=== PATIENT | female | born 1955 | race Caucasian/White ===

== ENCOUNTER 2019-02-25 05:49 | Inpatient (IN) ==
--- NOTE | 2019-02-02 09:03 | Anesthesiology Consultation ---
Date of Service February 02, 2019 Assessment & Plan (1) Encounter for pre-operative examination: Chart Review Chart Review: Acceptable Risk for Surgery and Patient seen in Pre Admission Testing Teaching & Discussion Instructed NPO after midnight before surgery, except medications with 15 cc of water. Medication instructions provided according to the PAT guidelines. History Surgery Operation Date: 02/25/19 08:50 Proposed Procedures p Right Total Knee Arthroplasty - Ruperto Jackson MD Height/Weight Height: 5 ft Weight: 88 kg Allergies Allergy/AdvReac Type Severity Reaction Status Date / Time aspirin Allergy Gastrointestinal Verified 01/29/19 07:57 Upset coffee (Coffea arabica) Allergy LARYNGITIS Verified 01/29/19 07:57 indomethacin [From Indocin] Allergy HALLUCINATI Verified 01/29/19 07:57 ON tretinoin [From Retin-A] Allergy Rash Verified 01/29/19 07:57 Medications Home Medications Medication Instructions Recorded Confirmed Last Taken acetaminophen [Tylenol Arthritis 650 mg PO Q12H PRN 01/29/19 01/29/19 Unknown Pain] Past Medical History Medical History Obesity Osteoarthritis Past Surgical History Surgical History History of bilateral tubal ligation History of bladder suspension procedure History of hysterectomy PARTIAL History of repair of rotator cuff History of total knee replacement LT - 11/2018 [facility] SAB + PNB, no issues. Nausea and vomiting after administration of anesthetic agent Past Anesthesia History No Hx of Anesthesia Complications (other than PONV (none with L TKA)) and No Family Hx of Anesthesia Complications History of PONV Yes Motion Sickness Screening History of Motion Sickness: No Social History Smoking Status: Never smoker Do You Dip or Chew Tobacco: No Hx Alcohol Use: No Hx Substance Use: No substance use type: does not use Exercise / Class Metabolic Activity II 4-5 Yardwork/Stairs/Walk up hill (but moving slowly 2/2 knee pain) Review of Systems Pt denies any recent chest pain, shortness of breath, palpitations, cough, fever or URI. Physical Exam Vital Signs BP: 146/87 (pt states not normally this high, she has been rushing around this AM) P: 89bpm SPO2: 97% RA T: 98.3 F R: 16 ENMT Mouth: no dental restorations, no chipped teeth and no loose teeth Thyromental Distance: < 3.5 Finger Breadths (3) Mallampati Class: II Neck normal visual inspection; neck extension not limited Respiratory normal respiratory effort Auscultation: lungs clear to auscultation bilaterally Cardiovascular Rate/Rhythm: regular rate and regular rhythm Heart Sounds: no murmur Vessels: no carotid bruit Testing Electrocardiogram Date: 10/23/18 Findings: + NSR @ (75) Chest X-Ray Date: 11/14/18 Findings: + NAD Laboratory Results 02/02/19 09:15 02/02/19 09:15 Blood Type B Positive 02/02/19 09:15 Antibody Screen NEGATIVE 02/02/19 09:15 PT 10.4 Seconds (9.0-12.0) 02/02/19 09:15 INR 1.0 (0.9-1.1) 02/02/19 09:15 APTT 24.0 Seconds (21.0-31.0) 02/02/19 09:15 Urine Color Yellow 02/02/19 09:15 Urine Appearance Clear (Clear) 02/02/19 09:15 Urine pH 6.0 (4.5-7.5) 02/02/19 09:15 Ur Specific [place] 1.012 (1.000-1.030) 02/02/19 09:15 Urine Protein Negative (Negative) 02/02/19 09:15 Urine Glucose (UA) Negative (Negative) 02/02/19 09:15 Urine Ketones Negative (Negative) 02/02/19 09:15 Urine Nitrite Negative (Negative) 02/02/19 09:15 Ur Leukocyte Esterase Negative (Negative) 02/02/19 09:15
[2019-02-02 09:56] LABS: Appearance Urine Clear (Clear); Bilirubin Urine Negative (Negative); Blood Urine Negative (Negative); Color Urine Yellow; Glucose Urine UA Negative (Negative); Ketones Urine Negative (Negative); Leukocyte Esterase Urine Negative (Negative); Nitrite Urine Negative (Negative); Protein Urine Negative (Negative); Specific Gravity Urine 1.012 (1.000-1.030); Urobilinogen Urine Negative (Negative)
[2019-02-02 10:01] LABS: Basophils # (auto) 0.01 K/uL (0-0.2); Basophils % (auto) 0.1 %; Eosinophils % (auto) 1.3 %; Hematocrit (blood only) 44.3 % (37-47); Hemoglobin 14.5 g/dL (12.0-16.0); Immature Granulocytes # (auto) 0.08 K/uL (0.00-0.02); Immature Granulocytes % (auto) 1.1 %; Lymphocytes # (auto) 2.51 K/uL (1.2-3.4); Lymphocytes % (auto) 33.3 %; Mean Corpuscular Hgb Conc 32.7 g/dL (32-36); Mean Corpuscular Volume 84.9 fL (80-100); Mean Platelet Volume 9.7 fL (7.4-10.4); Monocytes # (auto) 0.66 K/uL (0.11-0.59); Monocytes % (auto) 8.8 %; Neutrophils # (auto) 4.18 K/uL (1.4-6.5); Neutrophils % (auto) 55.4 %; Platelet Count 244 K/uL (130-400); RDW Coefficient of Variation 14.4 % (11.5-14.5); RDW Standard Deviation 44.4 fL (36.4-46.3); Red Blood Count 5.22 M/uL (4.2-5.4); White Blood Count 7.54 K/uL (4.8-10.8)
[2019-02-02 10:06] LABS: Calcium 9.9 mg/dl (8.5-10.1); Creatinine Clr Calc Pharmacy 78.8 ml/min; Est GFR (African American) 101.3; Est GFR (Non-African American) 87.4; Partial Thromboplastin Ratio 0.9; Potassium 4.6 mmol/L (3.5-5.1); Prothrombin Time 10.4 Seconds (9.0-12.0)
--- NOTE | 2019-02-04 16:52 | History and Physical Report ---
DATE OF ADMISSION: 02/25/2019 DATE OF SURGERY: 02/25/2019. CHIEF COMPLAINT: Right knee DJD. HISTORY OF PRESENT ILLNESS: This 63-year-old white female presents to the office with complaints of right knee pain that has been ongoing for greater than 10 years. She previously had a left total knee arthroplasty on 12/03/2018. She has done well with that and elects to proceed with the same on the right. She has tried cortisone injections, physical therapy, activity modification, oral anti-inflammatories, and oral pain medication without improvement. Pain is worse with weightbearing. Occasional night pain. Pain is affecting her ADLs. No numbness or tingling. Occasional effusions. Preoperative imaging has been obtained. PAST MEDICAL HISTORY: Significant for osteoarthritis and obesity. PREVIOUS SURGERIES: Tubal ligation 1990, hysterectomy with bladder tacking 2008, left shoulder rotator cuff repair 2013, left total knee arthroplasty 12/03/2018. ALLERGIES: KNOWN ALLERGY TO COFFEE, ASPIRIN WHICH CAUSES NAUSEA AND VOMITING, INDOCIN, AND RETIN-A. THIS CAUSES RASH. ALSO SENSITIVE TO ROBITUSSIN. CURRENT MEDICATIONS: Tylenol 500 mg every 6 hours. She has stopped all other homeopathic medications. FAMILY HISTORY: Noncontributory. SOCIAL HISTORY: The patient is . No tobacco use, no ETOH use. REVIEW OF SYSTEMS: A total of 10 systems were reviewed and are significant only for above-stated conditions. PHYSICAL EXAMINATION: GENERAL: Well-developed, well-nourished middle aged white female in no acute distress. Sitting on a chair. Alert and oriented. SKIN: Warm and dry with good turgor. No rashes or lesions. No ecchymosis or erythema. HEENT: Normocephalic, atraumatic. Eyes PERRLA, EOMI. Nares patent bilaterally without turbinate enlargement. Oropharynx without erythema or exudate. No lesions noted. Uvula midline. Oral mucosa moist. Fair dentition. Fillings are noted. HEART: RRR. No MGR. LUNGS: Clear to auscultation bilaterally. No crackles, rhonchi or wheezing. Good air movement. ABDOMEN: Bowel sounds present x4, soft, nontender. No organomegaly. No masses. Mildly obese. MUSCULOSKELETAL: Right knee evaluation reveals no intraarticular effusion today. She lacks 3-4 degrees of terminal extension. Flexion to greater than 100 degrees. Strength is 5/5 with fair quad tone. Stable collateral ligaments. No defect in the patellar tendon or quadriceps tendon. No palpable crepitus with motion. There is focal discomfort with palpation over the medial and lateral joint lines with medial being worst. Ambulatory with an antalgic gait due to her right knee. NEUROLOGIC: Gross sensation is intact across the upper and lower extremities by soft touch. Peripheral pulses are 2+. Cranial nerves II-XII are intact. DATA: Radiographic imaging previously obtained shows end-stage DJD of the right knee. Periarticular osteophytes, subchondral sclerosis, and joint space narrowing are all present. IMPRESSION: Right knee end-stage degenerative joint disease. PLAN: Approximately 20 minutes was spent with the patient discussing operative procedure, postoperative recovery, physical therapy requirements and medication use. Postoperative prescriptions for Percocet and Coumadin will be provided at discharge from the hospital. Anticipate discharge to home with outpatient services. She will have her children drive her to her lab appointments. Preoperative lab work, EKG, and chest x-ray have been ordered. She will obtain medical clearance from her PCP. She already has a walker.
[2019-02-25] MEDS ORDERED: TRANEXAMIC ACID 1,000 MG in 0.9 % SODIUM CHLORIDE 100 ML IV ONE (06:00)
[2019-02-25] MEDS ORDERED: ROPIVACAINE 0.5% HCL/PF 150 MG, BUPIVACAINE 0.5% MPF 30 ML, EPINEPHrine 0.15 MG, Ketoro... INFIL SCH (06:00)
[2019-02-25] MEDS ORDERED: CEFAZOLIN 2000MG 2,000 MG/15 ML SYR IV SCH (06:00)
[2019-02-25] MEDS ORDERED: LR 60ML/HR IV SCH (06:00)
[2019-02-25] MEDS ORDERED: LR 500ML BOLUS, THEN 15ML/HR IV SCH (06:00)
--- NOTE | 2019-02-25 06:33 | History & Physical Bridge Note ---
Date of Service February 25, 2019 History & Physical Bridge Note I have examined the patient, reviewed the History & Physical and in the interval since the performance of the History & Physical I have noted the following changes of clinical significance: consent obtained.no changes noted
[2019-02-25] MEDS ORDERED: EPINEPHrine INJ 1 MG/ML AMP ONE (06:38)
[2019-02-25] MEDS ORDERED: BUPIVACAINE 0.5 % 5 MG/1 ML PF 10ML VIAL ONE (06:38)
[2019-02-25] MEDS ORDERED: ROPIVACAINE 0.5% 5 MG/ML 30 ML VIAL ONE (06:38)
[2019-02-25] MEDS ORDERED: fentaNYL citrate 100 MCG/2 ML VIAL ONE (08:01)
[2019-02-25] MEDS ORDERED: MIDAZOLAM HCL 1 MG/ML 2ML VIAL ONE ×2 (08:01→08:10)
[2019-02-25] MEDS ORDERED: ONDANSETRON INJ 2 MG/ML 2 ML VIAL IV PRN ×2 (08:04→11:39)
[2019-02-25] MEDS ORDERED: LABETALOL HCL IV 5 MG/ML 20ML IV PRN (08:04)
[2019-02-25] MEDS ORDERED: MEPERIDINE HCL 25 MG/ML CARP IV PRN (08:04)
[2019-02-25] MEDS ORDERED: ePHEDrine sulfate 50 MG/ML AMP IV PRN (08:04)
[2019-02-25] MEDS ORDERED: PHENYLEPHRINE 100MCG/ML 5ML SYR IV PRN (08:04)
[2019-02-25] MEDS ORDERED: HYDROmorphone INJ 1 MG/ML SYRINGE IV PRN (08:04)
[2019-02-25] MEDS ORDERED: fentaNYL citrate 100 MCG/2 ML VIAL IV PRN (08:04)
[2019-02-25] MEDS ORDERED: ATROPINE SULFATE 0.1 MG/ML 10ML SYR IV PRN (08:04)
[2019-02-25] MEDS ORDERED: ORTHO JOINT ANESTHETIC ONE (08:34)
[2019-02-25] MEDS ORDERED: POVIDONE-IODINE OP SOLN 30 ML BTL ONE (08:34)
[2019-02-25] MEDS ORDERED: PROPOFOL IV EMULSION 10 MG/ML 20 ML VIAL IV ONE ×3 (08:55→09:24)
[2019-02-25] MEDS ORDERED: ONDANSETRON INJ 2 MG/ML 2 ML VIAL ONE (08:55)
--- NOTE | 2019-02-25 10:12 | Post Operative Brief Note ---
Immediate Post Op Note v1 Date of Surgery February 25, 2019 Pre & Post Diagnosis Operation Date: 02/25/19 08:50 Pre-Op Diagnosis: Right Knee End-Stage Degenerative Joint Disease Post-Op Diagnosis: Right Knee End-Stage Degenerative Joint Disease Procedure Operation Date: 02/25/19 08:50 Actual Procedures p Right Total Knee Arthroplasty, Cemented(Right) - Ruperto Jackson MD Surgeon Ruperto Jackson MD Stain Maker [facility] Estimated Blood Loss 25 Findings Consistent with Post-Op Diagnosis
--- NOTE | 2019-02-25 10:21 | Operative Report ---
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 She had tried conservative care measures without improvement. She previously had a left total knee arthroplasty done earlier this year. She has done very well with that. She elected to proceed with the same on the right. Risks and benefits were discussed. Preoperative imaging was obtained. Description of Procedure Patient was administered spinal anesthetic and then taken to the operating room where she was given sedation. She was prepped and draped in the usual sterile fashion. Please see Dr. Jackson's operative report for specifics of the procedure. I was present for the entire case from initial patient positioning through final wound closure. Assistance was provided in tissue retraction, hemostasis, trial implant placement, final implant placement, and final wound closure. Patient was taken to the recovery room in satisfactory condition. I attest to the content of the Intraoperative Record and any orders documented therein. Any exceptions are noted below.
--- NOTE | 2019-02-25 10:47 | XRay Report ---
TWO VIEWS RIGHT KNEE CLINICAL HISTORY: Postoperative examination. FINDINGS: AP and crosstable lateral portable views of the right knee are obtained. A right knee arthr oplasty is in near anatomic alignment. There has been undersurface remodeling of the patella. No acut e fracture is seen. There are expected postoperative changes around the knee including skin clips, so ft tissue edema, and subcutaneous gas. IMPRESSION: Expected postoperative changes status post right knee arthroplasty. No acute fracture is seen. Electronically signed by: Nelson Atkins M.D. 02/25/2019 10:45 AM
--- NOTE | 2019-02-25 11:12 | Progress Note ---
DATE: 02/25/2019 Postop check status post right total knee replacement. The patient is lying comfortably in bed, has no issues. She denies any chest pain, shortness of breath, fever, chills, nausea, vomiting or headache. Vital signs are stable. She is afebrile. Neurovascular check is limited by her spinal wearing off. Wound dressing clean, dry and intact. Postop x-rays look excellent. ASSESSMENT: Doing well. Continue with care pathway. Mobilize when spinal has worn off.
--- NOTE | 2019-02-25 11:19 | Anesthesiology Progress Note ---
Date of Service February 25, 2019 Anesthesia Post Procedure Vital Signs Vital Signs: Temp Pulse Pulse Resp BP Pulse Ox 02/25/19 11:15 36.5 C 88 23 118/74 99 02/25/19 11:05 86 21 125/74 99 02/25/19 10:55 82 20 125/69 100 02/25/19 10:45 84 17 119/65 100 02/25/19 10:35 82 21 114/64 100 02/25/19 10:25 85 18 111/61 98 02/25/19 10:19 37.0 C 86 16 86/53 L 98 02/25/19 06:49 36.7 C 97 H 20 143/92 H 97 Pain Intensity Right Knee: Pain Intensity: 0 Notes Mental Status: alert / awake / arousable Patient Amnestic to Procedure: Yes Nausea / Vomiting: adequately controlled Pain: adequately controlled Airway Patency, RR, SpO2: stable & adequate BP & HR: stable & adequate Hydration State: stable & adequate Neuraxial Anesthesia: was administered and sensory block is resolving Anesthetic Complications: no major complications apparent and Pt Satisfied with anesthetic care
[2019-02-25] MEDS ORDERED: MAGNESIUM HYDROXIDE SUSP 30 ML UDC PO PRN (11:39)
[2019-02-25] MEDS ORDERED: BISACODYL 10 MG SUPP PR PRN (11:39)
[2019-02-25] MEDS ORDERED: SODIUM CHLORIDE 0.9% 1000ML 1,000 ML IV SCH (11:39)
[2019-02-25] MEDS ORDERED: CYCLOBENZAPRINE HCL 10 MG TAB PO PRN (11:39)
[2019-02-25] MEDS ORDERED: METOCLOPRAMIDE HCL INJ 5 MG/ML 2 ML VIAL IV PRN (11:39)
[2019-02-25] MEDS ORDERED: NALOXONE HCL 0.4 MG/1 ML VIAL/CARP IV PRN (11:39)
[2019-02-25] MEDS ORDERED: ALUMINUM/MAGNESIUM SUSP 30 ML UDC PO PRN (11:39)
[2019-02-25] MEDS ORDERED: OXYCODONE HCL IR 5 MG TAB (IMMEDIATE RELEASE) PO PRN (11:39)
[2019-02-25] MEDS ORDERED: DiphenhydrAMINE HCL 50 MG/ML VIAL IV PRN (11:39)
[2019-02-25] MEDS ORDERED: HYDROmorphone INJ 0.5 MG/0.5 ML SYR IV PRN (11:39)
--- NOTE | 2019-02-25 11:41 | Operative Report ---
DATE OF OPERATION: 02/25/2019 SURGEON: Ruperto Jackson MD. HEEL TRIMMER: Nikos Winters PA-C. No resident or fellow available. PREOPERATIVE DIAGNOSES: Osteoarthritis right knee with varus deformity. POSTOPERATIVE DIAGNOSES: Osteoarthritis right knee with varus deformity. OPERATION PERFORMED: Cemented right total knee replacement. SUMMARY OF IMPLANTS: Size 2 right posterior cruciate substituting femur, size 2 mobile bearing tray, size 2 spacer 15 mm thick, posterior cruciate substituting oval domed 3 pegged patella size 38, 2 bags of Palacos G cement. Bone pathology pending. ESTIMATED BLOOD LOSS: 25 mL. DVT prophylaxis with Coumadin. PERIOPERATIVE SITUATION: Medically cleared female with intractable knee pain, has varus flexion deformity with x-rays revealing a varus alignment, marked subluxation and joint space narrowing, particularly medially with tricompartmental changes. DESCRIPTION OF PROCEDURE: The patient appropriately identified, site verified, consent verified. Antibiotics confirmed as being given. The right lower extremity was prepped and draped in usual routine fashion. Tourniquet inflated to 300 mmHg after exsanguination of limb with a rubber Esmarch bandage for a total of approximately 46 minutes. Midline exposure utilized. Parapatellar arthrotomy performed. Synovectomy completed. Marked osteophytes resected. Soft tissue releases medially performed. The distal femur was then resected 14 mm, proximal tibia 4 mm, the extension gap was excellent. Femur was sized between 2.5 and 2, was measured 2.5 cut 2. There was no notching. The flexion gap was then checked. It was good, slightly tight laterally, slight released, then it was excellent. The Orthomix was then injected posteriorly. Care taken not to get into the neurovascular pedicle. The box cut was then made and size 2 trial fit well. The size 2 tibia was then broached and reamed and a trial reduction carried out and with 15 mm spacer, the knee was very stable in full range. The patella was resected leaving about 16 mm. It was sized to a 38. The seating holes made and the trial tracked well. Orthomix was then injected all around the knee. The trials were removed. The wound irrigated with Betadine Pulsavac and then the permanents cemented into position starting with the tibia, followed by the femur, then the patella. After 12 minutes, the tourniquet deflated. Minor bleeding points controlled with the electrocautery. The wound was then irrigated and then at 14 minutes, the knee flexed, the trial spacer removed. No cement removal was required. The wound irrigated with Betadine. Permanent liner seated. The knee reduced. The wound was then closed in about 30-40 degrees of flexion with #2 Vicryl, 2-0 Vicryl and stainless steel clips. Appropriate dressing applied. The patient transferred to Recovery Room in satisfactory condition having tolerated the procedure well. I attest to the content of the Intraoperative Record and any orders documented therein. Any exception s are noted below.
[2019-02-25] MEDS: ACETAMINOPHEN 500 MG TAB PO SCH ×2 (13:45→21:02)
[2019-02-25] MEDS: KETOROLAC 30 MG/ML VIAL IV SCH ×2 (13:45→18:05)
[2019-02-25] MEDS: ORTHO WARFARIN NOMOGRAM SCH (14:09)
[2019-02-25] MEDS ORDERED: TRANEXAMIC ACID 1,000 MG in 0.9 % SODIUM CHLORIDE 100 ML IV SCH (16:00)
[2019-02-25] MEDS ORDERED: WARFARIN SOD 5 MG TAB PO SCH (16:00)
--- NOTE | 2019-02-25 16:32 | Progress Note ---
DATE: 02/25/2019 Eliza is doing well postop. Is able do straight leg raise and knee bends. Neurovascular check femoral sciatic nerve is normal. Wound dressing clean, dry and intact on the right knee. She ate and drank. She is doing well. She denies any chest pain, shortness of breath, fever, chills, nausea, vomiting, headache. ASSESSMENT: Doing well. Mobilize. Hep-Lock IV. Likely discharge in a.m.
--- NOTE | 2019-02-25 16:39 | Discharge Summary ---
CHIEF COMPLAINT: Right knee pain. HISTORY OF PRESENT ILLNESS: The patient underwent elective right total knee replacement. Hospital course has been uneventful to date. Vital signs are stable. She is afebrile. Eating and drinking. She has no problems. PAST MEDICAL HISTORY: Remarkable for osteoarthritis and obesity. PAST SURGICAL HISTORY: Tubal ligation, hysterectomy, shoulder surgery and left total knee replacement. ALLERGIES: COFFEE, ASPIRIN CAUSES NAUSEA, VOMITING INDOCIN, RETINAL WHICH CAUSE A RASH AND SENSITIVITY TO ROBITUSSIN. PREADMISSION MEDICATIONS: Include raymon, Naprosyn, cinnamon, tumeric, and Krill oil. She will discontinue her Naprosyn and add p.r.n. Percocet and Coumadin to keep INR 1.8-2.2. We will also add Flexeril 10 mg p.o. q. 8 hours p.r.n. FAMILY HISTORY: Noncontributory. SOCIAL HISTORY: Reveals she is . No tobacco or alcohol use. REVIEW OF SYSTEMS: Reveals no issues. ASSESSMENT: Overall, doing well status post right total knee replacement. Plan is for discharge tomorrow. Coumadin dose per nomogram. If INR is 1.5 or less, discharge on 4 mg Coumadin 1.6-2.0 2 mg Coumadin and greater than 2.0, hold.
[2019-02-25] MEDS: FERROUS GLUCONATE 324 MG TAB PO SCH (17:02)
[2019-02-25] MEDS: CEFAZOLIN 2000MG 2,000 MG/15 ML SYR IV SCH (17:02)
[2019-02-25] MEDS ORDERED: SENNA 8.6 MG TAB PO SCH (21:00)
[2019-02-25] MEDS: DOCUSATE SODIUM 100 MG CAP PO SCH (21:02)
[2019-02-26] MEDS: KETOROLAC 30 MG/ML VIAL IV SCH ×2 (00:22→05:02)
[2019-02-26] MEDS: CEFAZOLIN 2000MG 2,000 MG/15 ML SYR IV SCH (00:22)
[2019-02-26] MEDS: ACETAMINOPHEN 500 MG TAB PO SCH (05:02)
[2019-02-26 06:43] LABS: Hematocrit (blood only) 38.4 % (37-47); Hemoglobin 12.4 g/dL (12.0-16.0); Mean Corpuscular Hgb Conc 32.3 g/dL (32-36); Mean Corpuscular Volume 83.7 fL (80-100); Mean Platelet Volume 9.4 fL (7.4-10.4); Platelet Count 186 K/uL (130-400); RDW Coefficient of Variation 14.5 % (11.5-14.5); RDW Standard Deviation 44.5 fL (36.4-46.3); Red Blood Count 4.59 M/uL (4.2-5.4); White Blood Count 9.42 K/uL (4.8-10.8)
[2019-02-26 06:56] LABS: INR 1.1 (0.9-1.1); Prothrombin Time 11.4 Seconds (9.0-12.0)
--- NOTE | 2019-02-26 07:09 | Progress Note ---
DATE: 02/26/2019 SUBJECTIVE: Postop day #1 status post right total knee replacement. The patient is sitting up in bed, comfortable, has no major issues. Pain is well managed. She denies chest pain, shortness breath, fever, chills, nausea, vomiting, or headache. OBJECTIVE: Vital signs are stable. She is afebrile. Neurovascular check femoral sciatic nerve is normal. Wound dressing clean, dry and intact. Laboratory work reveals hematocrit stable at 38. INR is pending. PRP is pending. ASSESSMENT: Doing well. Plan is for discharge today. Coumadin per nomogram.
[2019-02-26 07:22] LABS: BUN Creatinine Ratio 20.4 (10-20); Calcium 8.9 mg/dl (8.5-10.1); Creatinine Clr Calc Pharmacy 82.7 ml/min; Est GFR (African American) 104.8; Est GFR (Non-African American) 90.4; Potassium 4.4 mmol/L (3.5-5.1)
[2019-02-26] MEDS: FERROUS GLUCONATE 324 MG TAB PO SCH (07:57)
[2019-02-26] MEDS: DOCUSATE SODIUM 100 MG CAP PO SCH (07:58)
[2019-02-26] MEDS ORDERED: dexAMETHasone 10 MG in SYRINGE 0 ML IV SCH (08:00)
--- NOTE | 2019-02-26 08:42 | Anesthesiology Progress Note ---
Date of Service February 26, 2019 Anesthesia Post Procedure Vital Signs Vital Signs: Temp Pulse Pulse Resp BP Pulse Ox 02/26/19 07:10 36.6 C 76 16 117/76 97 02/26/19 03:59 36.7 C 74 18 107/68 96 02/25/19 22:55 36.7 C 67 17 111/72 95 02/25/19 19:53 36.5 C 88 19 138/83 95 02/25/19 16:09 36.8 C 81 18 143/84 H 96 02/25/19 14:40 36.6 C 74 19 124/83 96 02/25/19 13:30 36.6 C 84 18 118/81 96 02/25/19 12:27 36.5 C 73 17 112/72 96 02/25/19 12:07 36.5 C 71 15 113/73 98 02/25/19 11:30 36.5 C 87 18 109/71 96 02/25/19 11:25 83 21 122/72 99 02/25/19 11:15 36.5 C 88 23 118/74 99 02/25/19 11:05 86 21 125/74 99 02/25/19 10:55 82 20 125/69 100 02/25/19 10:45 84 17 119/65 100 02/25/19 10:35 82 21 114/64 100 02/25/19 10:25 85 18 111/61 98 02/25/19 10:19 37.0 C 86 16 86/53 L 98 Pain Intensity Right Knee: Pain Intensity: 2 Notes Mental Status: alert / awake / arousable and participated in evaluation Patient Amnestic to Procedure: Yes Nausea / Vomiting: adequately controlled Pain: adequately controlled Airway Patency, RR, SpO2: stable & adequate BP & HR: stable & adequate Hydration State: stable & adequate Neuraxial Anesthesia: was administered and sensory block resolved Anesthetic Complications: no major complications apparent and Pt Satisfied with anesthetic care
[2019-02-26] MEDS ORDERED: MULTIVITAMIN TAB PO SCH (09:00)
[2019-02-26] MEDS: ORTHO WARFARIN NOMOGRAM SCH (09:23)
[2019-02-26] MEDS ORDERED: WARFARIN SOD 5 MG TAB PO SCH (10:00)
--- NOTE | 2019-02-26 10:04 | Orthopedic Progress Note ---
Date of Service February 26, 2019 Assessment & Plan (1) S/P total knee arthroplasty: New pressure dressing was applied by me. Continue Coumadin per nomogram. Discharge to home today after PT/OT with outpatient services. Prescriptions were provided for Coumadin, Percocet, and Flexeril. She will take Coumadin 4 mg daily and have her blood rechecked on Saturday. Keep the dressing dry and intact until Saturday. Change it as needed at that point. Discontinue the knee immobilizer for ambulation after today. Follow-up in the office in 2 weeks for staple removal as scheduled. Subjective Patient is seen in her room this morning. She is eating breakfast. She states she did well overnight. Even with motion, her worst pain was 2/10. She denies any numbness or tingling. She feels ready for discharge. No chest pain, shortness of breath, nausea, vomiting, diarrhea, chills, or sweats. She has been doing well with Percocet and Flexeril for pain control. Physical Exam Vital Signs (Past 24 Hours): Last Vital Signs Temp 36.6 C 02/26/19 07:10 Pulse 76 02/26/19 07:10 Resp 16 02/26/19 07:10 BP 117/76 02/26/19 07:10 Pulse Ox 97 02/26/19 07:10 Physical Exam: Right leg has a dry intact dressing. Upon removal, there is scant drainage. No active drainage currently. Expected postoperative edema and ecchymosis. She is able to perform a straight leg raise. Intact flexion and in extension to the knee. Flexes easily to around 70 degrees. Intact motor function to the ankle. Neurologic: Gross sensation is intact across the right leg by soft touch. Peripheral pulses are 2+.
== END 2019-02-26 11:57 | disposition home or self-care (01) | DRG 470 ==
LOC: ASU 05:49 → 3E 10:29

== ENCOUNTER 2020-12-30 07:38 | Inpatient (IN) ==
--- NOTE | 2020-12-13 08:56 | PAT Medication Instructions ---
Medication Instructions Date of Service December 13, 2020 Home Medications acetaminophen [Tylenol Arthritis Pain] 650 mg PO Q12H PRN amino acids [Amino Acid] 1 cap PO QAM STOP taking 2 weeks before surgery (or as soon as possible if surgery is within 2 weeks) amino acids [Amino Acid] 1 cap PO QAM Take morning of surgery With a small sip of water, OTHERWISE NOTHING TO EAT OR DRINK AFTER MIDNIGHT: acetaminophen [Tylenol Arthritis Pain] 650 mg PO Q12H PRN (okay to take up to 4 hours prior to surgery if needed) Take evening before surgery acetaminophen [Tylenol Arthritis Pain] 650 mg PO Q12H PRN (if needed) Other Notes If you have any questions please call us at [phone] or [phone] or [phone] or [phone]
--- NOTE | 2020-12-15 12:07 | Anesthesiology Consultation ---
Date of Service December 15, 2020 Assessment & Plan (1) Encounter for pre-operative examination: Chart Review Chart Review: Acceptable Risk for Surgery (pending preop Covid testing ) and Patient seen in Pre Admission Testing Per PAT appt on 12/15/20, pt resides in [facility]. Travels to [facility] for medical appts. 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 Does wear appropriate PPE. No known Covid positive contacts or Covid related symptoms. Scheduled for preop Covid testing 12/23/20= will await results. Educated on importance of self quarantining, social distancing and wearing mask in public both for the patient and household contacts. Right total knee 02/25/19= Done under SAB. No anesthesia issues noted per anesthesia record. Teaching & Discussion Pre-Anesthesia Teaching/Discussion Notes: Instructed NPO after midnight before s urgery,except medications with 15 cc of water. Medication instructions provided according to the [facility] guidelines. History Surgery Operation Date: 12/30/20 07:45 Proposed Procedures p C4-C5 Anterior Cervical Discectomy and Fusion, C6 Corpectomy, Spinal Cord Monitoring - Bud Torre DO Height/Weight Height: 5 ft Weight: 88.3 kg Allergies Allergy/AdvReac Type Severity Reaction Status Date / Time aspirin Allergy Gastrointestinal Verified 11/16/20 08:41 Upset coffee (Coffea arabica) Allergy LARYNGITIS Verified 11/16/20 08:41 indomethacin [From Indocin] Allergy HALLUCINATI Verified 11/16/20 08:41 ON tretinoin [From Retin-A] Allergy Rash Verified 11/16/20 08:41 Medications Home Medications Medication Instructions Recorded Confirmed Last Taken acetaminophen [Tylenol Arthritis 650 mg PO Q12H PRN 01/29/19 11/16/20 02/04/19 Pain] amino acids [Amino Acid] 1 cap PO QAM 11/16/20 11/16/20 Unknown Past Medical History Medical History (Updated 12/16/20 @ 08:17 by Waleska Cummings PA-C) Acid reflux Mild- occ- relieved with OTC antacids Obesity Osteoarthritis Exercise / Class Metabolic Activity II 4-5 Yardwork/Stairs/Walk up hill (one flight of stairs - no chest pain or SOB) Past Surgical History Surgical History History of bilateral tubal ligation History of bladder suspension procedure History of hysterectomy PARTIAL History of repair of rotator cuff left History of total knee replacement LT - 11/2018 [facility] SAB + PNB, no issues. History of total right knee replacement (TKR) Nausea and vomiting after administration of anesthetic agent Past Anesthesia History No Hx of Anesthesia Complications (with exception to PONV ) and No Family Hx of Anesthesia Complications History of PONV No Hx of Motion Sickness and History of PONV (declines scop patch ) Social History Smoking Status: Never smoker Do You Dip or Chew Tobacco: No Hx Alcohol Use: No Hx Substance Use: No substance use type: does not use Review of Systems Patient denies chest pain, shortness of breath, dyspnea on exertion, cough, wheezing, palpitations. No hx of seizures, stroke, [place], apnea/snoring. No hx of blood clots or blood transfusions Physical Exam Vital Signs VITALS BP 136/87 P 92 TEMP 97.9 SP02 97% RESP 16 Constitutional no acute distress ENMT Mouth: no TMJ clicking Thyromental Distance: < 3.5 Finger Breadths (3.0) Mallampati Class: III Missing molars Neck + limited neck extension (moderate to severe ) Respiratory normal respiratory effort; no respiratory distress Auscultation: lungs clear to auscultation bilaterally; no wheezes Cardiovascular Rate/Rhythm: regular rate and regular rhythm Heart Sounds: no murmur Vessels: no carotid bruit Musculoskeletal Spine: + pain with cervical ROM (mild to moderate) Extremities: extremities normal to inspection Psychiatric Orientation: alert Testing Laboratory Results 12/15/20 12:35 12/15/20 12:35 PT 11.0 Seconds (9.0-12.0) 12/15/20 12:35 INR 1.0 (0.9-1.1) 12/15/20 12:35 APTT 25.6 Seconds (21.0-31.0) 12/15/20 12:35 Urine Color Yellow 12/15/20 Unknown Urine Appearance Clear (Clear) 12/15/20 Unknown Urine pH 5.5 (4.5-7.5) 12/15/20 Unknown Ur Specific [place] 1.012 (1.000-1.030) 12/15/20 Unknown Urine Protein Negative (Negative) 12/15/20 Unknown Urine Glucose (UA) Negative (Negative) 12/15/20 Unknown Urine Ketones Trace (Negative) H 12/15/20 Unknown Urine Nitrite Negative (Negative) 12/15/20 Unknown Ur Leukocyte Esterase Negative (Negative) 12/15/20 Unknown Blood Type B Positive 12/15/20 12:35 Antibody Screen NEGATIVE 12/15/20 12:35 Electrocardiogram Date: 12/15/20 Findings: + NSR @ (84bpm) Normal EKG. Chest X-Ray Date: 12/15/20 Findings: + NAD
[2020-12-15 13:06] LABS: Basophils # (auto) 0.02 K/uL (0-0.2); Basophils % (auto) 0.3 %; Eosinophils # (auto) 0.13 K/uL (0-0.5); Eosinophils % (auto) 1.8 %; Hematocrit (blood only) 43.7 % (37-47); Hemoglobin 14.7 g/dL (12.0-16.0); Immature Granulocytes # (auto) 0.05 K/uL (0.00-0.02); Immature Granulocytes % (auto) 0.7 %; Lymphocytes # (auto) 1.74 K/uL (1.2-3.4); Lymphocytes % (auto) 23.9 %; Mean Corpuscular Hemoglobin 29.3 pg (25-34); Mean Corpuscular Hgb Conc 33.6 g/dL (32-36); Mean Corpuscular Volume 87.1 fL (80-100); Mean Platelet Volume 9.9 fL (7.4-10.4); Monocytes # (auto) 0.51 K/uL (0.11-0.59); Neutrophils # (auto) 4.83 K/uL (1.4-6.5); Neutrophils % (auto) 66.3 %; Platelet Count 289 K/uL (130-400); RDW Coefficient of Variation 13.9 % (11.5-14.5); RDW Standard Deviation 44.3 fL (36.4-46.3); Red Blood Count 5.02 M/uL (4.2-5.4); White Blood Count 7.28 K/uL (4.8-10.8)
--- NOTE | 2020-12-15 13:09 | XRay Report ---
XR chest Pre-admission PA/Lat CLINICAL HISTORY: Preoperative chest COMPARISON STUDY: 11/14/2018 FINDINGS: The cardiac and mediastinal contours are normal. There is no evidence of focal pulmonary co nsolidation. There is no evidence of failure. No pleural effusions are visualized.[ IMPRESSION: No active disease in the chest. ACT 112: Negative or not required by law. Electronically signed by: Chandana Suarez M.D. 12/15/2020 1:07 PM
[2020-12-15 13:10] LABS: Appearance Urine Clear (Clear); Bilirubin Urine Negative (Negative); Blood Urine Negative (Negative); Color Urine Yellow; Glucose Urine UA Negative (Negative); Ketones Urine Trace (Negative); Leukocyte Esterase Urine Negative (Negative); Nitrite Urine Negative (Negative); Protein Urine Negative (Negative); Specific Gravity Urine 1.012 (1.000-1.030); Urobilinogen Urine Negative (Negative); pH Urine 5.5 (4.5-7.5)
[2020-12-15 13:21] LABS: Partial Thromboplastin Ratio 0.9; Partial Thromboplastin Time 25.6 Seconds (21.0-31.0)
[2020-12-15 13:38] LABS: BUN Creatinine Ratio 15.2 (10-20); Calcium 9.6 mg/dl (8.5-10.1); Creatinine Clr Calc Pharmacy 79.1 ml/min; Est GFR (African American) 103.3; Est GFR (Non-African American) 89.1; Potassium 4.5 mmol/L (3.5-5.1)
--- NOTE | 2020-12-15 17:05 | Electrocardiogram Report ---
Test Reason : Blood Pressure : / mmHG Vent. Rate : 084 BPM Atrial Rate : 084 BPM P-R Int : 176 ms QRS Dur : 102 ms QT Int : 384 ms P-R-T Axes : 045 022 016 degrees QTc Int : 453 ms Normal sinus rhythm Normal ECG No previous ECGs available Confirmed by Andrea Cordova ([id number]) on 12/15/2020 5:04:55 PM Referred By: Bud Torre Confirmed By:Solo Cordova
[~2020-12-30 07:38] MED LIST: ACETAMINOPHEN 500 MG TAB PO SCH; CeleBREX 200 MG CAP PO SCH; GABAPENTIN 600 MG DOSE PO SCH; LR 15ML/HR IV SCH; PROPOFOL IV EMULSION 10 MG/ML 100 ML VIAL IV ONE; ceFAZolin 2000MG 2,000 MG/15 ML SYR IV SCH
[2020-12-30] MEDS ORDERED: ATROPINE SULFATE 0.1 MG/ML 10ML SYR IV PRN (09:01)
[2020-12-30] MEDS ORDERED: LABETALOL HCL IV 5 MG/ML 20ML IV PRN (09:01)
[2020-12-30] MEDS ORDERED: ONDANSETRON INJ 2 MG/ML 2 ML VIAL IV PRN ×2 (09:01→14:27)
[2020-12-30] MEDS ORDERED: PROMETHAZINE HCL 12.5 MG in SODIUM CHLORIDE 0.9% 50 ML IV PRN ×2 (09:01→14:27)
[2020-12-30] MEDS ORDERED: HYDROmorphone INJ 1 MG/ML SYRINGE IV PRN ×2 (09:01→14:27)
[2020-12-30] MEDS ORDERED: ONDANSETRON INJ 2 MG/ML 2 ML VIAL ONE (09:39)
[2020-12-30] MEDS ORDERED: SUCCINYLCHOLINE CHLORIDE 20 MG/ML 10 ML VIAL IV ONE (09:39)
[2020-12-30] MEDS ORDERED: LIDOCAINE HCL 2% 2 ML VIAL/AMP(20MG/ML) INFIL ONE (09:39)
[2020-12-30] MEDS ORDERED: ROCURONIUM BROMIDE 10 MG/ML 5 ML VIAL IV ONE (09:39)
[2020-12-30] MEDS ORDERED: PROPOFOL IV EMULSION 10 MG/ML 20 ML VIAL IV ONE (09:39)
[2020-12-30] MEDS ORDERED: DEXAMETHASONE SOD INJ 4 MG/ML VIAL ONE (09:39)
[2020-12-30] MEDS ORDERED: MIDAZOLAM HCL 1 MG/ML 2ML VIAL ONE (09:40)
[2020-12-30] MEDS ORDERED: fentaNYL citrate 100 MCG/2 ML VIAL ONE ×2 (09:40)
--- NOTE | 2020-12-30 10:14 | History & Physical Bridge Note ---
Date of Service December 30, 2020 History & Physical Bridge Note I have examined the patient, reviewed the History & Physical and in the interval since the performance of the History & Physical I have noted the following changes of clinical significance: no changes noted
--- NOTE | 2020-12-30 10:15 | History & Physical Report ---
Date of Service December 30, 2020 Assessment & Plan (1) Cervical stenosis of spinal canal: Admission and Anticipated Discharge Date Admission Date: C4-C5 anterior cervical discectomy and fusion, C6 corpectomy History of Present Illness Chief Complaint: Neck and arm pain Primary Care Provider: NO PCP This is a 65-year-old female who presents with current persistent neck and arm symptoms after failing course of nonoperative care she is here for surgical invention. Allergies Allergy/AdvReac Type Severity Reaction Status Date / Time aspirin Allergy Gastrointestinal Verified 12/30/20 08:09 Upset coffee (Coffea arabica) Allergy LARYNGITIS Verified 12/30/20 08:09 guaifenesin [From Robitussin] Allergy Verified 12/30/20 08:09 indomethacin [From Indocin] Allergy HALLUCINATI Verified 12/30/20 08:09 ON tretinoin [From Retin-A] Allergy Rash Verified 12/30/20 08:09 Home Medications Medication Instructions Recorded Confirmed Type acetaminophen [Tylenol Arthritis 650 mg PO Q12H PRN 01/29/19 12/30/20 History Pain] amino acids [Amino Acid] 1 cap PO QAM 11/16/20 12/30/20 History Past Med/Surg History Medical History (Updated 12/30/20 @ 10:15 by Bud Torre DO) Acid reflux Mild- occ- relieved with OTC antacids Obesity Osteoarthritis Surgical History History of bilateral tubal ligation History of bladder suspension procedure History of hysterectomy PARTIAL History of repair of rotator cuff left History of total knee replacement LT - 11/2018 [facility] SAB + PNB, no issues. History of total right knee replacement (TKR) Nausea and vomiting after administration of anesthetic agent Social History Smoking Status: Never smoker Second Hand Exposure: No; Do You Dip or Chew Tobacco: No; Tobacco Cessation Education Requested by Patient: No Hx Alcohol Use: No Hx Substance Use: No Preferred Language: Thai Communication Ability: Effective Data Entry Specialist Required: No Beliefs That Will Affect Care: None Current Living Situation: Family Other Information That Helps Us Care for You: No Feels Safe at Home: Yes Assistive Devices: Contacts Physical Exam Physical Exam: Patient is alert and oriented Heart regular in rhythm Lungs clear to auscultation Results & Data ([facility]) Vital Signs (Past 12 Hours) Vital Signs Temp Pulse Resp BP Pulse Ox 12/30/20 08:11 36.7 C 96 H 18 154/97 H 99
[2020-12-30] MEDS ORDERED: BACITRACIN INJ 50,000 UNIT VIAL ONE (10:29)
[2020-12-30] MEDS ORDERED: SODIUM CHLORIDE 0.9% INJ 10 ML VIAL ONE (11:23)
[2020-12-30] MEDS ORDERED: NEOSTIGMINE METHYLSULFATE 1 MG/ML 10ML VIAL ONE (12:25)
[2020-12-30] MEDS ORDERED: GLYCOPYRROLATE 0.2 MG/ML VIAL ONE (12:25)
[2020-12-30] MEDS ORDERED: FLOSEAL HEMOSTATIC MATRIX 10ML TOP ONE (12:47)
--- NOTE | 2020-12-30 12:51 | Operative Report ---
Post Operative Report Pre & Post Diagnosis Operation Date: 12/30/20 09:35 Pre-Op Diagnosis: Cervical spinal stenosis with myeloradiculopathy Post-Op Diagnosis: Same I identified the patient and participated in the time-out.: Yes Procedure Operation Date: 12/30/20 09:35 Actual Procedures #1 anterior cervical corpectomy C5 with bilateral foraminotomies. #2 anterior cervical discectomy with bilateral foraminotomies C6-C7. #3 anterior cervical arthrodesis C4-C6 and C6-C7. #4 placement peek cage 21 mm in height at C4-C6 and 7 mm in height at C6-C7. #5 placement locally harvested morselized autograft in the interbody cage combined with DBM. #6 application of hoang plate and screws from C4-C7. Surgeon Bud Torre, DO Foundation Drill Operator Helper Kofi Espinal Estimated Blood Loss 40 Findings See Below Patient is 5 foot 1 inches tall weighing over 87 kg with a BMI in excess of 36. Patient's body habitus did create increased technical difficulty adding at least 25% increase to the operative time. Specimens None Indications This is a 65-year-old female who presents with admission diagnosis after failing course of nonoperative care is here for the above-mentioned seizure. Description of Procedure Patient was met with identified informed consent obtained. 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 All bony prominences well-padded eyes inspected to ensure no external pressure placed upon. This point the anterior cervical spine was prepped and draped in a sterile fashion. Assistance of fluoroscopy identified the C5-6 disc base and a transverse incision was placed along the right anterior aspect of the cervical spinal lines region. Sharp dissection with assistance of bipolar electrocautery was performed down to and exposing the anterior cervical spine from C4-C7. Several 10 retractors placed. Then performed a complete discectomy of C4 and C5 out to the uncovertebral's bilaterally followed by C5-C6. [place] distractor pins were then placed in C4 and C6 to distract across the C5 vertebral body. A complete corpectomy was then performed including removal of all posterior annular fibers longitudinal ligament bilateral foraminotomies. In place producing cortical bleeding bone and a 21 mm peek cage filled locally harvested morselized off and DBM tapped in position. Then proceeded to C6-C7. Again complete discectomy performed out the the uncovertebral joints bilaterally. [place] distraction pins again utilized. Then removed all posterior fibers longitudinal ligament bilateral foraminotomies performed. Endplates then burred to subcortical being bone and a 7 mm peek cage filled with local autograft and DBM tapped in position. Distracting apparatus was removed all anterior osteophytes burred to a smooth cortical surface and a 5 complete and screws applied with the assistance of fluoroscopy. Incision was then copiously irrigated explored to ensure no damage to surrounding structure remaining bleeding. 10 round MONA drain inserted. Was then closed with 1 Vicryl fascia 2-0 Vicryl subcutaneously and 4 Monocryl for final skin closure. Steri- Strip sterile dressings placed. Patient will continue PACU stable condition. Please note spinal cord monitoring was utilized at the procedure no changes noted. Lastly Kofi Espinal was present at the entire procedure involved the patient positioning complex portions of the surgery and final skin closure. I attest to the content of the Intraoperative Record and any orders documented therein. Any exceptions are noted below.
--- NOTE | 2020-12-30 13:32 | Fluoroscopy Report ---
FL cervical 2-3V CLINICAL HISTORY: C4-C5 ACDF, C6 corpectomy COMPARISON STUDY: None. FLUOROSCOPY TIME: 16 seconds. FINDINGS: 4 fluoroscopic spot images of the cervical spine demonstrate anterior cervical discectomy a nd fusion from C4 through C7 with a C5 corpectomy. The hardware appears intact. IMPRESSION: Fluoroscopy provided for C4-C7 ACDF. ACT 112: Negative or not required by law. Electronically signed by: Kamar Parker M.D. 12/30/2020 1:31 PM
--- NOTE | 2020-12-30 14:06 | Anesthesiology Progress Note ---
Date of Service December 30, 2020 Anesthesia Post Procedure Vital Signs Vital Signs: Temp Pulse Pulse Resp BP BP Pulse Ox 12/30/20 13:55 36.2 C L 77 16 131/72 96 12/30/20 13:45 87 19 127/70 96 12/30/20 13:35 71 17 142/83 H 97 12/30/20 13:25 67 16 153/83 H 98 12/30/20 13:15 81 17 140/74 97 12/30/20 13:08 36.5 C 90 16 153/87 H 98 12/30/20 08:11 36.7 C 96 H 18 154/97 H 99 Transfer of Care Handoff Completed per policy Notes Mental Status: alert / awake / arousable Patient Amnestic to Procedure: Yes Nausea / Vomiting: adequately controlled Pain: adequately controlled Airway Patency, RR, SpO2: stable & adequate BP & HR: stable & adequate Hydration State: stable & adequate Anesthetic Complications: no major complications apparent
[2020-12-30] MEDS ORDERED: DO NOT ADMINISTER FLU VACCINE PRN (14:27)
[2020-12-30] MEDS ORDERED: HYDROmorphone INJ 0.5 MG/0.5 ML SYR IV PRN (14:27)
[2020-12-30] MEDS ORDERED: ONDANSETRON 4 MG OD TAB PO PRN (14:27)
[2020-12-30] MEDS ORDERED: METOCLOPRAMIDE HCL INJ 5 MG/ML 2 ML VIAL IV PRN (14:27)
[2020-12-30] MEDS ORDERED: traMADol HCL 50 MG TABLET PO PRN (14:27)
[2020-12-30] MEDS ORDERED: RACEPINEPHRINE 2.25% NEBU SOLN 0.5 ML VIAL INH PRN (14:27)
[2020-12-30] MEDS ORDERED: DEXAMETHASONE SOD PHOSPHATE 8 MG in SYRINGE 0 ML IV PRN (14:27)
[2020-12-30] MEDS ORDERED: FAMOTIDINE 20 MG TAB PO PRN (14:27)
[2020-12-30] MEDS ORDERED: LORazepam 0.5 MG/1 ML VIAL IV PRN (14:27)
[2020-12-30] MEDS ORDERED: ALUMINUM/MAGNESIUM SUSP 30 ML UDC PO PRN (14:27)
[2020-12-30] MEDS ORDERED: DO NOT ADMINISTER PNEUMOCOCCAL VACCINE PRN (14:27)
[2020-12-30] MEDS ORDERED: ACETAMINOPHEN 1,000 MG/100 ML VIAL IV PRN (14:27)
[2020-12-30] MEDS ORDERED: ACETAMINOPHEN 500 MG TAB PO PRN (14:27)
[2020-12-30] MEDS ORDERED: LORazepam 0.5 MG TAB PO PRN (14:27)
[2020-12-30] MEDS ORDERED: MAGNESIUM HYDROXIDE SUSP 30 ML UDC PO PRN (14:27)
[2020-12-30] MEDS ORDERED: oxyCODONE HCL IR 5 MG TAB (IMMEDIATE RELEASE) PO PRN (14:27)
[2020-12-30] MEDS ORDERED: diphenhydrAMINE Capsule 25 MG CAP PO PRN (14:27)
[2020-12-30] MEDS ORDERED: hydrOXYzine HCl 25 MG TAB PO PRN (14:27)
[2020-12-30] MEDS ORDERED: NALOXONE HCL 0.4 MG/1 ML VIAL/CARP IV PRN (14:27)
[2020-12-30] MEDS ORDERED: SOD PHOSPHATE/SOD BIPHOSPHATE ENEMA 132 ML BTL PR PRN (14:27)
[2020-12-30] MEDS: SODIUM CHLORIDE 0.9% 1000ML 1,000 ML IV SCH ×2 (14:38→23:32)
[2020-12-30] MEDS: DEXAMETHASONE SOD PHOSPHATE 6 MG in SYRINGE 0 ML IV SCH ×2 (15:20→21:41)
[2020-12-30] MEDS: ceFAZolin 2000MG 2,000 MG/15 ML SYR IV SCH (20:20)
[2020-12-30] MEDS ORDERED: DOCUSATE SODIUM/SENNA 50/8.6MG TAB PO SCH (21:00)
[2020-12-31] MEDS: ceFAZolin 2000MG 2,000 MG/15 ML SYR IV SCH (03:36)
[2020-12-31] MEDS: DEXAMETHASONE SOD PHOSPHATE 6 MG in SYRINGE 0 ML IV SCH (05:37)
--- NOTE | 2020-12-31 11:36 | Discharge Summary ---
Date of Service December 31, 2020 Admission HPI Per Admitting Provider This is a 65-year-old female who presents with current persistent neck and arm symptoms after failing course of nonoperative care she is here for surgical invention. Principal Diagnosis Cervical spinal stenosis with myeloradiculopathy Discharge Data Allergies Allergy/AdvReac Type Severity Reaction Status Date / Time aspirin Allergy Gastrointestinal Verified 12/30/20 08:09 Upset coffee (Coffea arabica) Allergy LARYNGITIS Verified 12/30/20 08:09 guaifenesin [From Robitussin] Allergy Verified 12/30/20 08:09 indomethacin [From Indocin] Allergy HALLUCINATI Verified 12/30/20 08:09 ON tretinoin [From Retin-A] Allergy Rash Verified 12/30/20 08:09 Procedures Performed Operation Date: 12/30/20 09:35 Actual Procedures p C4-C5 Anterior Cervical Discectomy and Fusion, C6 Corpectomy, Spinal Cord Monitoring - Bud Torre DO Ordered Studies 12/30/20 FL cervical 2-3V Routine FL fluoroscopy <1hr Routine Hospital Course (1) Cervical stenosis of spinal canal: Patient went anterior cervical decompression fusion tolerated so was taken to orthopedic for possibly. Postop day 1 she was swallowing well no hoarseness. Arm symptoms improved. Excellent strength testing. MONA drain decreasing appropriately. Subsequently discharged home. Discharge orders and instructions found in the chart for further review. Total Time Total Time Spent Total Time Spent (In Minutes): 20 minutes Discharge Plan Discharge Items Patient Disposition: Home - Self-Care Reason For Visit: Spinal Stenosis, Cervical Region Discharge Diagnosis: Cervical spinal stenosis with myeloradiculopathy Activity: As commented below Non-emergency contact: Primary Care Provider Call non-emergency contact if: you have any medication questions Follow-up/Referrals: PCP,NO [Primary Care Provider] - Diet: Regular Addtl Attending Provider Instructions: ACTIVITY RECOMMENDATIONS: SELF CARE INSTRUCTIONS AFTER CERVICAL FUSIONS 1. No smoking. Smoking drastically decreases the chance of a solid fusion. 2. No bending, lifting more than 5 pounds, or twisting (roll like a log when turning in bed). 3. You may shower 3 days after surgery. Thoroughly dry wound. Do not soak in the tub. 4. Cervical collar: Must be worn at all times including sleeping. You may remove the brace only to bath, eat and if you are sitting in a recliner. 5. Please walk as much as you can for exercise. Gradually increase the distance that you walk as your endurance increases. SPECIAL CARE INSTRUCTIONS: VERY IMPORTANT TO READ AND REVIEW A. Do not take any anti-inflammatory medications (i.e. Indocin, Advil, Aspirin, Naprosyn, Aleve, Motrin, etc.) as these may inhibit the chance of a solid fusion. Tylenol is okay to take. B. Your surgical incision has been closed with a cosmetic suture under the skin that will dissolve in about 6 weeks. In 14 days, you can use a pair of clean scissors and cut the suture that is left outside of the skin at the ends of your incision. C. Complications are uncommon, but please contact us if you have any signs or symptoms of: 1. wound infection (fever higher than 102.5 degrees F, redness, separation of wound, drainage, or increasing pain from the incision) 2. blood clots in legs (pain, swelling, redness and warmth in legs) 3. urinary tract infection (fever higher than 102.5 degrees, burning upon urination or increased frequency of urination) 4. nerve problems (inability to walk on your toes or heels, numbness, loss of bowel or bladder control) 5. any other symptoms that concern you. D. Please call the office at if you have any concerns or questions about your operation or recovery. MANAGING PAIN AFTER SPINAL SURGERY 1. Narcotic medication is intended for short-term use and will be provided for surgical pain. Surgical pain usually lasts for a period of 4-6 weeks. Narcotic medication includes Percocet, Vicodin, Darvocet, Tylenol #3 or Lortab. 2. Longer-term pain is more appropriately treated with non-narcotic medication such as Tylenol ES. 3. Muscle spasm is not appropriately treated with narcotics. Muscle relaxers such as Soma, Flexeril or Skelaxin can be used along with Tylenol ES. 4. Remember that we all live with some "aches and pains". This is not unusual or uncommon after an injury or as we get older. 5. We will provide appropriate medication within the normal guidelines of their prescribed use. We will also be very cautious and aware of potential abuse and extended duration of patients' medication needs. 6. Please allow 2-3 days to process refills. Prescriptions will not be mailed but must be picked up at the office. FOLLOW UP VISIT: Keep your scheduled follow-up appointment. Any questions, please call the office at . Pending Studies at Discharge: No Stand-Alone Forms: My [facility], Smoking Cessation Medications and DC Order Prescriptions: New tramadol 50 mg tablet 50 mg PO Q6H PRN (Reason: pain, moderate) Qty: 15 RF: 0 oxycodone 5 mg tablet 5 mg PO Q6H PRN (Reason: pain, severe) Qty: 15 RF: 0 Continued Amino Acid Capsule 1 cap PO QAM RF: 0 acetaminophen [Tylenol Arthritis Pain] 650 mg Tablet Extended Release 650 mg PO Q12H PRN (Reason: Pain) RF: 0 Discharge Orders: Discharge Order (Routine); Ordered 12/31/20 Ordered By: Bud Torre Admission Data Admit Date/Time: 12/30/20 13:33 Attending Provider: Bud Torre Admit Provider: Bud Torre Primary Care Provider: PCP,NO
[2020-12-31] MEDS ORDERED: POLYETHYLENE (MIRALAX) 17 GM PACK PO SCH (12:53)
[2021-01-01] MEDS ORDERED: bisacodyL 10 MG SUPP PR PRN (12:53)
== END 2020-12-31 12:08 | disposition home or self-care (01) | DRG 472 ==
LOC: PAT 07:38 → 3E 13:33